=== PATIENT | female | born 1960 | race Caucasian/White ===

== ENCOUNTER 2020-07-29 15:52 | Inpatient (IN) | payer MEDICAID ==
[~2020-07-29] VITALS: Ht 162.6 cm; Wt 65.1 kg
[2020-07-29] MEDS ORDERED: ALBUTEROL SULFATE 2.5 MG/0.5 ML NEB SOLUTION NEB ONE (16:15)
[2020-07-29] MEDS ORDERED: IPRATROPIUM BROMIDE 0.5 MG/2.5 ML NEB SOLUTION NEB ONE (16:15)
[2020-07-29 16:18] LABS: COVID AG,FIA SOURCE NASOPHARYNGEAL
[2020-07-29 16:21] LABS: BASOPHILS % (AUTO) 0.2 % (0.0-2.0); HEMATOCRIT 40.7 % (36-46); LYMPHOCYTES % (AUTO) 40.6 % (22.0-44.0); MEAN CORPUSCULAR HEMOGLOBIN 29.8 pg (26.0-34.0); MEAN CORPUSCULAR VOLUME 93 fL (80-100); MONOCYTES # (AUTO) 1.1 K/uL (0.1-1.0); MONOCYTES % (AUTO) 7.7 % (2.0-9.0); NEUTROPHILS # (AUTO) 7.4 K/uL (1.8-7.7); NEUTROPHILS % (AUTO) 50.5 % (40.0-70.0); PLATELET COUNT (AUTO) 287 K/uL (150-450); RED BLOOD CELL COUNT(AUTO) 4.38 MIL/uL (4.00-5.20); RED CELL DISTRIBUTION WIDTH 15.4 % (11.5-14.5)
[2020-07-29 16:32] LABS: CALCIUM, TOTAL 8.5 mg/dL (8.8-10.5); CREATININE 1.36 mg/dL (0.60-1.30); POTASSIUM 3.4 mmol/L (3.5-5.1)
[2020-07-29 16:38] LABS: ALBUMIN 3.7 g/dL (3.4-5.0); BILIRUBIN,TOTAL 0.4 mg/dL (0.1-1.0)
[2020-07-29] MEDS ORDERED: PRAS10TA6 PO (16:42)
[2020-07-29] MEDS ORDERED: SACU1TAB PO (16:42)
[2020-07-29] MEDS ORDERED: NITR0.4T52 SL (16:42)
[2020-07-29] MEDS ORDERED: SPIR25 PO (16:42)
[2020-07-29] MEDS ORDERED: ASPI-1450 PO (16:42)
[2020-07-29] MEDS ORDERED: ATOR40TA28 PO (16:42)
[2020-07-29] MEDS ORDERED: METO50 PO (16:42)
[2020-07-29] MEDS ORDERED: IOHEXOL 350 MG/ML 100 ML VIAL ONE (17:00)
[2020-07-29] MEDS ORDERED: SODIUM CHLORIDE 0.9% 100 ML ONE (17:00)
[2020-07-29] MEDS ORDERED: FUROSEMIDE 40 MG/4 ML VIAL IVP ONE (17:15)
[2020-07-29] MEDS ORDERED: NITROGLYCERIN 2% (1 GM=INCH) PACKET TP ONE (17:15)
[2020-07-29] MEDS ORDERED: CefTRIAXone 1 GM/DEXTROSE 50 ML IV ONE (18:45)
[2020-07-29] MEDS ORDERED: AZITHROMYCIN 500 MG/NS 250 ML IV ONE (18:45)
[2020-07-29] MEDS ORDERED: ACETAMINOPHEN 325 MG TABLET PO PRN ×2 (19:00→20:45)
[2020-07-29] MEDS ORDERED: ONDANSETRON HCL 4 MG/2 ML VIAL IVP PRN ×2 (19:00→20:45)
[2020-07-29 20:43] VITALS: BP 130/76
[2020-07-29] MEDS ORDERED: BENZONATATE 100 MG CAPSULE PO PRN (20:45)
[2020-07-29] MEDS ORDERED: SODIUM CHLORIDE 0.9% 1,000 ML IV SCH (21:15)
[2020-07-29] MEDS ORDERED: SODIUM CHLORIDE 0.9% 1,000 ML ONE (22:02)
[2020-07-29] MEDS ORDERED: MAGNESIUM SULFATE 2 GM/WATER 50 ML IV PRN (22:45)
[2020-07-29] MEDS ORDERED: MAGNESIUM OXIDE 400 MG TABLET PO PRN (22:45)
[2020-07-29] MEDS ORDERED: MAGNESIUM SULFATE 4 GM/WATER 100 ML IV PRN (22:45)
[2020-07-29] MEDS ORDERED: NITROGLYCERIN 0.4 MG SUBLINGUAL TABLET #25 SL PRN (23:00)
[2020-07-29] MEDS ORDERED: POTASSIUM CHLORIDE 10% 40 MEQ/30 ML LIQUID UDCUP PO ONE (23:00)
[2020-07-29] MEDS: HEPARIN SODIUM,PORCINE 5,000 UNITS/ML VIAL SQ SCH (23:28)
[2020-07-30] VITALS (7 sets, daily range): BP systolic 96–118; BP diastolic 53–70
[2020-07-30 07:24] LABS: BASOPHILS % (AUTO) 0.7 % (0.0-2.0); EOSINOPHILS % (AUTO) 0.7 % (1.0-6.0); HEMATOCRIT 33.6 % (36-46); HEMOGLOBIN 11.1 g/dL (12.0-16.0); LYMPHOCYTES # (AUTO) 2.7 K/uL (1.0-4.8); LYMPHOCYTES % (AUTO) 24.1 % (22.0-44.0); MEAN CORPUSCULAR HEMOGLOBIN 30.2 pg (26.0-34.0); MEAN CORPUSCULAR VOLUME 92 fL (80-100); MONOCYTES # (AUTO) 0.9 K/uL (0.1-1.0); MONOCYTES % (AUTO) 7.9 % (2.0-9.0); NEUTROPHILS # (AUTO) 7.5 K/uL (1.8-7.7); NEUTROPHILS % (AUTO) 66.6 % (40.0-70.0); PLATELET COUNT (AUTO) 209 K/uL (150-450); RED BLOOD CELL COUNT(AUTO) 3.67 MIL/uL (4.00-5.20); RED CELL DISTRIBUTION WIDTH 15.1 % (11.5-14.5)
[2020-07-30 07:38] LABS: ANION GAP 9 mmol/L (8-16); CALCIUM, TOTAL 8.2 mg/dL (8.8-10.5); CARBON DIOXIDE 26 mmol/L (22-29); CHLORIDE 104 mmol/L (98-107); CREATININE 0.94 mg/dL (0.60-1.30); GLOMERULAR FILTR. RATE CALC > 60 mL/min (>60); GLUCOSE,RANDOM 78 mg/dL (70-110); POTASSIUM 3.8 mmol/L (3.5-5.1); SODIUM SERUM 139 mmol/L (136-145); UREA NITROGEN, BLOOD 13 mg/dL (7-18)
[2020-07-30] MEDS: SPIRONOLACTONE 25 MG TABLET PO SCH (08:49)
[2020-07-30] MEDS: ASPIRIN 81 MG CHEWABLE TABLET PO SCH (08:49)
[2020-07-30] MEDS: METOPROLOL TARTRATE 50 MG TABLET PO SCH (08:49)
[2020-07-30] MEDS: ATORVASTATIN CALCIUM 40 MG TABLET PO SCH (08:49)
[2020-07-30] MEDS: HEPARIN SODIUM,PORCINE 5,000 UNITS/ML VIAL SQ SCH ×3 (08:50→23:58)
[2020-07-30] MEDS: FUROSEMIDE 20 MG/2 ML VIAL IVP SCH (08:50)
[2020-07-30] MEDS: PRASUGREL HCL 10 MG TABLET PO SCH (08:52)
[2020-07-30] MEDS: CefTRIAXone 1 GM/DEXTROSE 50 ML IV SCH (16:18)
[2020-07-30] MEDS: AZITHROMYCIN 500 MG/NS 250 ML IV SCH (17:02)
[2020-07-31 05:03] VITALS: BP 130/73
[2020-07-31 06:31] LABS: EOSINOPHILS % (AUTO) 1.6 % (1.0-6.0); HEMATOCRIT 36.6 % (36-46); LYMPHOCYTES # (AUTO) 3.4 K/uL (1.0-4.8); LYMPHOCYTES % (AUTO) 32.2 % (22.0-44.0); MEAN CORPUSCULAR HEMOGLOBIN 30.1 pg (26.0-34.0); MEAN CORPUSCULAR HGB CONC 32.8 G/dL (31.0-37.0); MEAN CORPUSCULAR VOLUME 92 fL (80-100); MONOCYTES # (AUTO) 0.9 K/uL (0.1-1.0); MONOCYTES % (AUTO) 8.6 % (2.0-9.0); NEUTROPHILS # (AUTO) 5.9 K/uL (1.8-7.7); NEUTROPHILS % (AUTO) 56.6 % (40.0-70.0); PLATELET COUNT (AUTO) 213 K/uL (150-450); RED BLOOD CELL COUNT(AUTO) 3.99 MIL/uL (4.00-5.20); RED CELL DISTRIBUTION WIDTH 15.1 % (11.5-14.5)
[2020-07-31 07:07] LABS: CALCIUM, TOTAL 8.8 mg/dL (8.8-10.5); CREATININE 1.17 mg/dL (0.60-1.30); POTASSIUM 4.9 mmol/L (3.5-5.1)
[2020-07-31 08:07] VITALS: BP 140/85
[2020-07-31] MEDS: ASPIRIN 81 MG CHEWABLE TABLET PO SCH (09:58)
[2020-07-31] MEDS: LISINOPRIL 5 MG TABLET PO SCH (09:58)
[2020-07-31] MEDS: METOPROLOL TARTRATE 50 MG TABLET PO SCH (09:58)
[2020-07-31] MEDS: PRASUGREL HCL 10 MG TABLET PO SCH (09:58)
[2020-07-31] MEDS: ATORVASTATIN CALCIUM 40 MG TABLET PO SCH (09:58)
[2020-07-31] MEDS: SPIRONOLACTONE 25 MG TABLET PO SCH (09:58)
[2020-07-31] MEDS: FUROSEMIDE 20 MG/2 ML VIAL IVP SCH (09:59)
[2020-07-31] MEDS: HEPARIN SODIUM,PORCINE 5,000 UNITS/ML VIAL SQ SCH ×3 (09:59→23:32)
[2020-07-31 11:21] VITALS: BP 134/74
[2020-07-31 15:45] VITALS: BP 117/61
[2020-07-31] MEDS: CefTRIAXone 1 GM/DEXTROSE 50 ML IV SCH (16:52)
[2020-07-31] MEDS: AZITHROMYCIN 500 MG/NS 250 ML IV SCH (18:37)
[2020-07-31 20:05] VITALS: BP 107/59
[2020-08-01 00:01] VITALS: BP 103/51
[2020-08-01 04:11] VITALS: BP 104/61
[2020-08-01 08:00] VITALS: BP 116/59
[2020-08-01] MEDS: METOPROLOL TARTRATE 50 MG TABLET PO SCH (09:00)
[2020-08-01] MEDS: SPIRONOLACTONE 25 MG TABLET PO SCH (09:47)
[2020-08-01] MEDS: HEPARIN SODIUM,PORCINE 5,000 UNITS/ML VIAL SQ SCH ×2 (09:47→16:00)
[2020-08-01] MEDS: FUROSEMIDE 20 MG/2 ML VIAL IVP SCH (09:47)
[2020-08-01] MEDS: ASPIRIN 81 MG CHEWABLE TABLET PO SCH (09:48)
[2020-08-01] MEDS: PRASUGREL HCL 10 MG TABLET PO SCH (09:48)
[2020-08-01] MEDS: ATORVASTATIN CALCIUM 40 MG TABLET PO SCH (09:48)
[2020-08-01] MEDS: LISINOPRIL 5 MG TABLET PO SCH (09:49)
[2020-08-01] MEDS ORDERED: FURO20 PO (10:01)
[2020-08-01 12:00] VITALS: BP 118/71
[2020-08-01 16:00] VITALS: BP 120/76
== END 2020-08-01 16:35 | disposition home or self-care (01) | DRG 194 ==
LOC: EMS 15:55 → 5N 19:45
PROVIDERS: ADMIT Internal Medicine; ATTEND Internal Medicine
DX: I11.0 Hypertensive heart disease with heart failure (principal); J96.01 Acute respiratory failure with hypoxia; R65.11 Systemic inflammatory response syndrome (SIRS) of non-infectious origin with acute organ dysfunction; I50.23 Acute on chronic systolic (congestive) heart failure; N17.9 Acute kidney failure, unspecified; I25.10 Atherosclerotic heart disease of native coronary artery without angina pectoris; F17.210 Nicotine dependence, cigarettes, uncomplicated; E87.6 Hypokalemia; E78.5 Hyperlipidemia, unspecified; Z20.822 Contact with and (suspected) exposure to COVID-19; I25.2 Old myocardial infarction; Z88.8 Allergy status to other drugs, medicaments and biological substances; Z88.0 Allergy status to penicillin; Z79.82 Long term (current) use of aspirin; Z95.5 Presence of coronary angioplasty implant and graft; J18.9 Pneumonia, unspecified organism
CPT/HCPCS: 71045; 71275; 80048; 80053; 82040; 83036; 83735; 83880; 84484; 85025; 85379; 87040; 87426; 93306; 99291; A9575; J0456; J0696; J1644; J1940; J7030; J7050; 36415-L1; 36415-TC; J7613; U0003